=== PATIENT | female | born 1955 | race Caucasian/White ===

== ENCOUNTER → 2021-10-10 | Outpatient (CLI) | payer OTHER | END | disposition home or self-care (01) | LOC: NUCLEAR 07:50 | PROVIDERS: ATTEND Internal Medicine Cardiovascular Disease | DX: I20.1 Angina pectoris with documented spasm (principal) ==

== ENCOUNTER 2021-10-30 07:15 | Inpatient (IN) | payer OTHER ==
[~2021-10-30] VITALS: Ht 167.6 cm; Wt 72.1 kg
[2021-10-30] MEDS ORDERED: SYNTHROID88 MCG PO ×2 (08:00→08:01)
[2021-10-30] MEDS ORDERED: SYNTHROID100 MCG PO (08:01)
[2021-10-30] MEDS ORDERED: PREDISONE PO (08:02)
[2021-10-30] MEDS ORDERED: PLAQUENIL PO (08:03)
[2021-10-30] MEDS ORDERED: ACTONEL150 MG PO (08:04)
[2021-10-30] MEDS ORDERED: LIPIT PO (08:04)
[2021-11-05] MEDS ORDERED: LOSARTAN POTASS50 MG (07:59)
[2021-11-05] MEDS ORDERED: PANTOPRAZOLE SO40 MG (07:59)
[2021-11-05] MEDS ORDERED: HYDROXYCHLOROQ200 MG (07:59)
[2021-11-05] MEDS ORDERED: RAYOS5 MG (07:59)
[2021-11-05] MEDS ORDERED: ATORVASTATIN CA10 MG (07:59)
[2021-11-07] MEDS ORDERED: ELIQUIS2.5 MG PO (15:18)
[2021-11-07] MEDS ORDERED: PERCOCET 5-3251 EACH PO (15:18)
[2021-11-07] MEDS ORDERED: DUI500 PO (15:18)
[2021-11-08] MEDS ORDERED: PERCOCET 5-3251 EACH PO (07:55)
== END 2021-11-08 13:55 | DRG 470 ==
LOC: SURH 11-05 06:00 → O/R 11-05 06:00 → SURG 11-05 07:15 → SURH 11-05 09:56 → SURG 11-05 10:45 → SURH 11-08 13:55
PROVIDERS: ADMIT Orthopaedic Surgery; ATTEND Orthopaedic Surgery
PROC: 0SRD0J9 Replacement of Left Knee Joint with Synthetic Substitute, Cemented, Open Approach (ICD-10-PCS; principal; 2021-11-05 10:45)
DX: M17.12 Unilateral primary osteoarthritis, left knee (principal); D62 Acute posthemorrhagic anemia; M22.12 Recurrent subluxation of patella, left knee; I10 Essential (primary) hypertension; E03.9 Hypothyroidism, unspecified; M32.9 Systemic lupus erythematosus, unspecified; E66.9 Obesity, unspecified; Z20.822 Contact with and (suspected) exposure to COVID-19